=== PATIENT | female | born 1955 | race Two or more races ===

== ENCOUNTER 2020-05-01 09:29 | Outpatient (CLI) | payer OTHER | END 2020-05-01 09:43 | disposition home or self-care (01) | LOC: MAMO-SONO 09:29 | PROVIDERS: ATTEND Family Medicine | DX: Z12.31 Encounter for screening mammogram for malignant neoplasm of breast (principal); Z87.898 Personal history of other specified conditions; N64.4 Mastodynia ==

== ENCOUNTER 2020-05-11 10:30 | Outpatient (CLI) | payer OTHER | END 2020-05-11 10:33 | disposition home or self-care (01) | LOC: SONOGRAMA 10:30 | PROVIDERS: ATTEND Family Medicine | DX: R10.2 Pelvic and perineal pain (principal); R74.8 Abnormal levels of other serum enzymes ==